=== PATIENT | female | born 1965 | race Hispanic/Latino ===

== ENCOUNTER 2020-12-12 12:40 | Emergency (ER) | payer OTHER ==
[~2020-12-12 12:40] MED LIST: Iopamidol-370 76% 500 ML 1 ML ONE
[2020-12-12] MEDS ORDERED: Boostrix 0.5 ML (Tdap) VIAL ONE (13:02)
[2020-12-12] MEDS ORDERED: Ondansetron PF 4 MG/2 ML Vial ONE ×2 (13:02→17:29)
[2020-12-12] MEDS ORDERED: Morphine 4 MG/ML VIAL ONE (13:02)
[2020-12-12 13:45] LABS: #Eosinphils 0.1 thou/uL (0.0-0.7); #Lymphocytes 2.7 thou/uL (1.20-3.40); #Monocytes 0.6 thou/uL (0.11-0.59); #Neutrophils 7.6 thou/uL (1.40-6.50); %Basophils 0.1 % (0.0-1.0); %Lymphocytes 24.4 % (21.0-51.0); %Monocytes 5.3 % (0.0-10.0); %Neutrophils 69.2 % (42.0-75.0); Mean Corpuscular HGB CONC 33.7 g/dL (32.0-36.0); Mean Corpuscular Hemoglobin 29.7 pg (27.0-31.0); Mean Corpuscular Volume 87.9 fL (78.0-98.0); Mean Platelet Volume 8.3 fL (7.4-10.4); Platelet Count 250 thou/uL (130-400); RBC Distribution Width 13.5 % (11.5-14.5)
[2020-12-12 14:05] LABS: ALT (SGPT) 19 U/L (8-55); AST (SGOT) 21 U/L (5-34); Albumin 3.9 g/dL (3.5-5.0); Alkaline Phosphatase 65 U/L (40-110); Anion Gap 12 mmol/L (10-20); BUN (Urea Nitrogen) 13 mg/dL (9.8-20.1); Calc. Creatinine Clearance 0 mL/min (70-130); Calcium 9.4 mg/dL (7.8-10.44); Carbon Dioxide 26 mmol/L (22-29); Chloride 106 mmol/L (98-107); Globulin 3.3 g/dL (2.4-3.5); Glucose 105 mg/dL (70-105); Potassium 3.7 mmol/L (3.5-5.1); Protein, Total 7.2 g/dL (6.0-8.3); Sodium 140 mmol/L (136-145)
[2020-12-12] MEDS ORDERED: Fentanyl 100 MCG/2 ML VIAL ONE (14:06)
[2020-12-12] MEDS ORDERED: Magnesium 2 GM/50 ML BAG (IN WATER) ONE (14:08)
[2020-12-12] MEDS ORDERED: Bacitracin 1 PK ONE (15:02)
[2020-12-12] MEDS ORDERED: Ketorolac Tromethamine 30 MG/ML VIAL ONE (15:41)
== END 2020-12-12 17:55 | disposition home or self-care (01) ==
LOC: ERS 12:40
DX: S22.31XA Fracture of one rib, right side, initial encounter for closed fracture (principal); V49.40XA Driver injured in collision with unspecified motor vehicles in traffic accident, initial encounter
CPT/HCPCS: 71260; 74177; 80053; 85025; 90471; 90715; 93005; 96365; 96368; 96375; J1885; J2270; J2405; J3010; J3475; Q9967